=== PATIENT | female | born 1985 | race Caucasian/White ===

== ENCOUNTER 2018-04-01 19:14 | Emergency (ER) | payer MEDICAID | END 2018-04-01 21:54 | disposition home or self-care (01) | LOC: FTE 19:14 | DX: R21 Rash and other nonspecific skin eruption (principal) | CPT/HCPCS: 99283; Z7502 ==

== ENCOUNTER 2018-09-01 18:41 | Emergency (ER) | payer MEDICAID | END 2018-09-01 21:54 | disposition home or self-care (01) | LOC: FTE 18:41 | DX: J01.10 Acute frontal sinusitis, unspecified (principal); R09.89 Other specified symptoms and signs involving the circulatory and respiratory systems | CPT/HCPCS: 99283; Z7502 ==

== ENCOUNTER 2019-03-30 21:57 | Emergency (ER) | payer MEDICAID ==
[2019-03-31] MEDS: ACETAMINOPHEN 325 MG TAB PO (00:22)
== END 2019-03-31 02:35 | disposition home or self-care (01) ==
LOC: FTE 03-31 02:35
DX: S09.90XA Unspecified injury of head, initial encounter (principal); W22.8XXA Striking against or struck by other objects, initial encounter; Y92.810 Car as the place of occurrence of the external cause
CPT/HCPCS: 99282; Z7502